=== PATIENT | female | born 1960 | race Caucasian/White ===

== ENCOUNTER 2018-09-16 01:56 | Inpatient (IN) | payer MEDICARE, OTHER ==
[2018-09-16 01:57] VITALS: BMI 47.7
--- NOTE | 2018-09-16 02:11 | C.PDOC ---
History Of Present Illness The patient, whose past medical history includes hypertension, presents to the ED for evalaution of chest pressure/tightness and elevated blood pressure noted earlier tonight. Patient states she has discontinued one of her blood pressure medications because she heard it may cause cancer. She denies fever, chills, nausea, and vomiting. Time Seen by Provider: 09/16/18 02:10 History Per: Patient History/Exam Limitations: no limitations Onset/Duration Of Symptoms: Hrs Current Symptoms Are (Timing): Still Present Severity: Moderate Pain Scale Rating Of: 4 Quality: Tightness, Pressure Associated Symptoms: denies: Nausea Modifying Factors: None Exacerbating Factors: None Alleviating Factors: None Recent travel outside of the [place]: No Additional History Per: Patient Past Medical History Reviewed: Historical Data, Nursing Documentation, Vital Signs - Medical History PMH: Arthritis (knees), Asthma, Gastritis, HTN Denies: Chronic Kidney Disease Surgical History: No Surg Hx Family History: States: Unknown Family Hx - Social History Hx Alcohol Use: No Hx Substance Use: No - Immunization History Hx Influenza Vaccination: Yes Review Of Systems Constitutional: Negative for: Fever, Chills Cardiovascular: Positive for: Other (chest pressure/tightness, elevated blood pressure ). Negative for: Chest Pain, Palpitations Respiratory: Negative for: Cough, Shortness of Breath Gastrointestinal: Negative for: Nausea, Vomiting, Abdominal Pain Musculoskeletal: Negative for: Back Pain Skin: Negative for: Rash, Lesions, Jaundice, Bruising Neurological: Negative for: Weakness, Numbness Psych: Negative for: Anxiety Physical Exam - Physical Exam Appears: Non-toxic, No Acute Distress Skin: Warm, Dry Head: Normacephalic Eye(s): bilateral: Normal Inspection Oral Mucosa: Moist Neck: Supple Chest: Symmetrical, No Deformity, No Tenderness Cardiovascular: Rhythm Regular, No Murmur Respiratory: No Rales, No Rhonchi, No Wheezing, Other (speaking in complete sentences ) Gastrointestinal/Abdominal: Bowel Sounds (good ), Soft, No Tenderness, No Guarding, No Rebound, Other (obese ) Back: No CVA Tenderness Extremity: Normal ROM, Capillary Refill (less than 2 seconds ) Extremity: Bilateral: Atraumatic Neurological/Psych: Oriented x3 Gait: Steady ED Course And Treatment - Laboratory Results Result Diagrams: 09/16/18 02:38 09/16/18 02:38 ECG: Interpreted By Me, Viewed By Me ECG Rhythm: Sinus Rhythm (87), Nonspecific Changes O2 Sat by Pulse Oximetry: 96 (on RA) Pulse Ox Interpretation: Normal - Radiology CXR: Interpreted by Me, Viewed By Me CXR Interpretation: No: Infiltrates, Fracture, Pnemothorax Progress Note: Bloodwork, CXR, EKG ordred and reviewed. Aspirin PO given. Disposition Discussed With Dr.: Sylvia Mackey Comment: accepted the pt on his service and took over the care at 3:27AM Doctor Will See Patient In The: Hospital Counseled Patient/Family Regarding: Studies Performed, Diagnosis - Disposition Disposition: HOME/ ROUTINE Disposition Time: 02:10 Condition: FAIR - POA Present On Arrival: Poor Glycemic Control - Clinical Impression Clinical Impression: Chest pain, Hyperglycemia - Scribe Statement The provider has reviewed the documentation as recorded by the Scribe (Brittni Mackey) Provider Attestation: All medical record entries made by the Scribe were at my direction and person ally dictated by me. I have reviewed the chart and agree that the record accurately reflects my personal performance of the history, physical exam, medical decision making, and the department course for this patient. I have also personally directed, reviewed, and agree with the discharge instructions and disposition. Decision To Admit - Pt Status Changed To: Hospital Disposition Of: Inpatient - Admit Certification Admit to Inpatient:: After my assessment, the patient will require hospitalization for at least two midnights. This is because of the severity of symptoms shown, intensity of services needed, and/or the medical risk in this patient being treated as an outpatient. - InPatient: Physician Admission Certification: I certify that this patient requires 2 or more midnights of care for the following reason:: After my assessment, the patient will require hospitalization for at least two midnights. This is because of the severity of symptoms shown, intensity of services needed, and/or the medical risk in this patient being treated as an outpatient. - . Bed Request Type: Telemetry Admitting Physician: Sylvia Mackey Patient Diagnosis: Chest pain, Hyperglycemia
[2018-09-16] MEDS ORDERED: Aspirin 325 mg EC Tablets PO STA (02:21)
[2018-09-16 02:44] LABS: BASO % 0.6 % (0.0-2.0); EOS # 0.1 K/uL (0.0-0.7); EOS % 0.9 % (0.0-4.0); HEMOGLOBIN 12.1 g/dL (11.0-16.0); LYMPH # 1.8 K/uL (1.0-4.3); LYMPH % 28.5 % (20.0-40.0); MEAN CELL VOLUME 88.7 fL (81.0-99.0); MEAN CORPUSCULAR HEMOGLOBIN 28.7 pg (27.0-31.0); MEAN CORPUSCULAR HGB CONC 32.4 g/dL (33.0-37.0); MEAN PLATELET VOLUME 8.8 fL (7.2-11.7); MONO # 0.4 K/uL (0.0-0.8); MONO % 6.7 % (0.0-10.0); NEUT # 4.1 K/uL (1.8-7.0); NEUT % 63.3 % (50.0-75.0); NRBC % 0.1 % (0.0-2.0); RBC 4.21 Mil/uL (3.80-5.20); WHITE BLOOD COUNT 6.4 K/uL (4.8-10.8)
[2018-09-16 02:53] LABS: ALB/GLOB RATIO 1.1 (1.0-2.1); ALBUMIN 3.9 g/dL (3.5-5.0); ALT/SGPT 14 U/L (9-52); AST/SGOT 17 U/L (14-36); BLOOD UREA NITROGEN 16 mg/dL (7-17); CALCIUM 9.2 mg/dl (8.6-10.4); GFR NON-AFRICAN AMERICAN > 60
--- NOTE | 2018-09-16 07:19 | CP.PCM.PN ---
Subjective - Date & Time of Evaluation Date of Evaluation: 09/16/18 Time of Evaluation: 07:19 - Subjective Subjective: Medicine Progress Note - Dr Venecia Mackey's Service Patient seen and examined at bedside. She was admitted this morning for left sided chest pain. She denies any other associated symptoms. States that chest pain has since resolved. Offers no complaints at this time. Objective - Vital Signs/Intake and Output Vital Signs (last 24 hours): Temp Pulse Resp BP Pulse Ox 98.0 F 87 20 122/53 L 100 09/16/18 06:57 09/16/18 06:57 09/16/18 06:57 09/16/18 06:57 09/16/18 06:57 - Labs Labs: 09/16/18 02:38 09/16/18 02:38 - Constitutional Appears: Non-toxic, No Acute Distress - Head Exam Head Exam: ATRAUMATIC, NORMAL INSPECTION - Eye Exam Eye Exam: EOMI, Normal appearance - ENT Exam ENT Exam: Mucous Membranes Moist - Respiratory Exam Respiratory Exam: Clear to Ausculation Bilateral, NORMAL BREATHING PATTERN. absent: Rales, Rhonchi, Wheezes - Cardiovascular Exam Cardiovascular Exam: REGULAR RHYTHM, +S1, +S2 - GI/Abdominal Exam GI & Abdominal Exam: Soft. absent: Tenderness - Extremities Exam Extremities Exam: absent: Calf Tenderness - Back Exam Back Exam: NORMAL INSPECTION - Neurological Exam Neurological Exam: Alert, Awake, Oriented x3 - Psychiatric Exam Psychiatric exam: Normal Affect, Normal Mood - Skin Skin Exam: Dry, Normal Color, Warm Assessment and Plan - Assessment and Plan (Free Text) Assessment: Chest pain r/o ACS -Patient on telemetry -Troponins negative x 3 -EKG showed normal sinus rhythm with junctional ST depressions with nonspecific ST-T wave changes -Echocardiogram ordered -Started patient on ASA 81mg PO daily, Toprol XL 25mg PO daily, Crestor 20mg PO HS -Patient would like to go home today -Cardiology on consult, Dr Horton, help appreciated -Patient to schedule stress test outpatient Hypertension -Continue home Olmesartan/HCTZ DISPO: We will clear patient for discharge home. She is to follow up with Dr Horton for outpatient stress test. Plan discussed with Dr Venecia Mcneal DO PGY-2
[2018-09-16 08:34] LABS: BASO % 0.3 % (0.0-2.0); EOS # 0.1 K/uL (0.0-0.7); EOS % 1.3 % (0.0-4.0); HEMOGLOBIN 11.7 g/dL (11.0-16.0); LYMPH # 2.1 K/uL (1.0-4.3); LYMPH % 35.1 % (20.0-40.0); MEAN CELL VOLUME 88.9 fL (81.0-99.0); MEAN CORPUSCULAR HGB CONC 32.6 g/dL (33.0-37.0); MEAN PLATELET VOLUME 8.9 fL (7.2-11.7); MONO # 0.4 K/uL (0.0-0.8); MONO % 7.6 % (0.0-10.0); NEUT # 3.3 K/uL (1.8-7.0); NEUT % 55.7 % (50.0-75.0); RBC 4.05 Mil/uL (3.80-5.20); RED CELL DISTRIBUTION WIDTH 16.2 % (11.5-14.5); WHITE BLOOD COUNT 5.9 K/uL (4.8-10.8)
[2018-09-16 08:57] LABS: ALB/GLOB RATIO 1.2 (1.0-2.1); ALBUMIN 3.7 g/dL (3.5-5.0); ALT/SGPT 17 U/L (9-52); AST/SGOT 21 U/L (14-36); BLOOD UREA NITROGEN 19 mg/dL (7-17); CALCIUM 8.8 mg/dl (8.6-10.4); GFR NON-AFRICAN AMERICAN > 60; HDL CHOLESTEROL 43 mg/dL (30-70)
[2018-09-16 09:07] LABS: LDL CHOLESTEROL 100 mg/dL (0-129)
[2018-09-16 09:23] LABS: CK-MB 0.53 ng/mL (0.0-3.38)
--- NOTE | 2018-09-16 10:48 | CP.PCM.CON ---
History of Present Illness - History of Present Illness History of Present Illness: 58-year-old female with past medical history significant for hypertension who stopped taking her blood pressure medications secondary to withdrawal of the medicine from the market with concerns for cancer resented with complaints of ch est discomfort shortness of breath and uncontrolled hypertension. Patient apparently started having substernal chest pressure radiating to the neck accompanied with shortness of breath EKG showed normal sinus rhythm with junctional ST depressions with nonspecific ST-T wave changes prior to cardiac enzymes were negative clinically she is stable right now heart rate of 78 with a blood pressure 138/74 past medical history is significant only for hypertension asthma gastritis no history of smoking no significant family history of premature CAD. Review of Systems - Review of Systems Systems not reviewed;Unavailable: Acuity of Condition - Constitutional Constitutional: As Per HPI - EENT Eyes: As Per HPI Ears: As Per HPI Nose/Mouth/Throat: As Per HPI - Breasts Breasts: As Per HPI - Cardiovascular Cardiovascular: As Per HPI - Respiratory Respiratory: As Per HPI - Gastrointestinal Gastrointestinal: As Per HPI - Genitourinary Genitourinary: As Per HPI - Reproductive: Female Reproductive:Female: As Per HPI - Menstruation Menstruation: As Per HPI - Musculoskeletal Musculoskeletal: As Per HPI - Integumentary Integumentary: As Per HPI - Neurological Neurological: As Per HPI - Psychiatric Psychiatric: As Per HPI - Endocrine Endocrine: As Per HPI - Hematologic/Lymphatic Hematologic: As Per HPI Past Patient History - Infectious Disease Hx of Infectious Diseases: None - Past Medical History & Family History Past Medical History?: Yes - Past Social History Smoking Status: Never Smoked - CARDIAC Hx Hypertension: Yes - PULMONARY Hx Asthma: Yes - NEUROLOGICAL Hx Neurological Disorder: No - HEENT Hx HEENT Problems: No - RENAL Hx Chronic Kidney Disease: No - ENDOCRINE/METABOLIC Hx Endocrine Disorders: No - HEMATOLOGICAL/ONCOLOGICAL Hx Blood Disorders: No - INTEGUMENTARY Hx Dermatological Problems: No - MUSCULOSKELETAL/RHEUMATOLOGICAL Hx Arthritis: Yes (knees) Other/Comment: Bilateral knee replacements in 2009 - GASTROINTESTINAL Hx Gastritis: Yes - GENITOURINARY/GYNECOLOGICAL Hx Genitourinary Disorders: No - PSYCHIATRIC Hx Substance Use: No - SURGICAL HISTORY Hx Surgeries: Yes Hx Orthopedic Surgery: Yes (total marlen knee) Other/Comment: D&C and uterine biopsy with of son - ANESTHESIA Hx Anesthesia: Yes Hx Anesthesia Reactions: No Hx Malignant Hyperthermia: No Has any member of the family had a problem w/ anesthesia?: No Meds Allergies/Adverse Reactions: Allergies Allergy/AdvReac Type Severity Reaction Status Date / Time dog dander Allergy Verified 09/16/18 02:16 FISH Allergy Verified 09/16/18 02:16 iodine Allergy Verified 09/16/18 02:16 padilla Allergy Verified 09/16/18 04:13 padilla flavor Allergy Verified 09/16/18 04:13 Penicillins Allergy Verified 09/16/18 02:16 strawberry Allergy Verified 09/16/18 02:16 wheat Allergy Verified 09/16/18 02:16 Physical Exam - Constitutional Appears: Well - Head Exam Head Exam: ATRAUMATIC, NORMAL INSPECTION, NORMOCEPHALIC - Eye Exam Eye Exam: EOMI, Normal appearance, PERRL Pupil Exam: NORMAL ACCOMODATION, PERRL - ENT Exam ENT Exam: Mucous Membranes Moist, Normal Exam - Neck Exam Neck exam: Positive for: Normal Inspection - Respiratory Exam Respiratory Exam: Clear to Auscultation Bilateral, NORMAL BREATHING PATTERN - Cardiovascular Exam Cardiovascular Exam: REGULAR RHYTHM - GI/Abdominal Exam GI & Abdominal Exam: Normal Bowel Sounds, Soft. absent: Tenderness - Extremities Exam Extremities exam: Positive for: normal inspection - Back Exam Back exam: NORMAL INSPECTION - Neurological Exam Neurological exam: Alert, CN II-XII Intact, Normal Gait, Oriented x3, Reflexes Normal - Psychiatric Exam Psychiatric exam: Normal Affect, Normal Mood - Skin Skin Exam: Dry, Intact, Normal Color, Warm Results - Vital Signs Recent Vital Signs: Last Vital Signs Temp 98.0 F 09/16/18 06:57 Pulse 87 09/16/18 06:57 Resp 20 09/16/18 06:57 BP 122/53 L 09/16/18 06:57 Pulse Ox 100 09/16/18 06:57 - Labs Result Diagrams: 09/16/18 08:30 09/16/18 08:30 Labs: Laboratory Results - last 24 hr 09/16/18 09/16/18 09/16/18 02:38 02:38 08:30 WBC 6.4 D 5.9 RBC 4.21 4.05 Hgb 12.1 11.7 Hct 37.3 36.0 MCV 88.7 D 88.9 MCH 28.7 29.0 MCHC 32.4 L 32.6 L RDW 16.0 H 16.2 H Plt Count 234 234 MPV 8.8 8.9 Neut % (Auto) 63.3 55.7 Lymph % (Auto) 28.5 35.1 Davie % (Auto) 6.7 7.6 Eos % (Auto) 0.9 1.3 Baso % (Auto) 0.6 0.3 Neut # (Auto) 4.1 3.3 Lymph # (Auto) 1.8 2.1 Davie # (Auto) 0.4 0.4 Eos # (Auto) 0.1 0.1 Baso # (Auto) 0.0 0.0 Sodium 137 Potassium 3.8 Chloride 102 Carbon Dioxide 30 Anion Gap 9 L BUN 16 Creatinine 0.9 Est GFR ( Amer) > 60 Est GFR (Non-Af Amer) > 60 Random Glucose 121 H Hemoglobin A1c Calcium 9.2 Phosphorus Magnesium Total Bilirubin 0.6 AST 17 ALT 14 Alkaline Phosphatase 78 Total Creatine Kinase CK-MB (Mass) Troponin I < 0.0120 Total Protein 7.4 Albumin 3.9 Globulin 3.5 Albumin/Globulin Ratio 1.1 Triglycerides Cholesterol LDL Cholesterol Direct HDL Cholesterol 09/16/18 09/16/18 08:30 08:30 WBC RBC Hgb Hct MCV MCH MCHC RDW Plt Count MPV Neut % (Auto) Lymph % (Auto) Davie % (Auto) Eos % (Auto) Baso % (Auto) Neut # (Auto) Lymph # (Auto) Davie # (Auto) Eos # (Auto) Baso # (Auto) Sodium 136 Potassium 4.0 Chloride 99 Carbon Dioxide 32 H Anion Gap 10 BUN 19 H Creatinine 0.7 Est GFR ( Amer) > 60 Est GFR (Non-Af Amer) > 60 Random Glucose 108 H Hemoglobin A1c 6.2 Calcium 8.8 Phosphorus 4.1 Magnesium 1.8 Total Bilirubin 0.3 AST 21 ALT 17 Alkaline Phosphatase 82 Total Creatine Kinase 58 CK-MB (Mass) 0.53 Troponin I < 0.0120 Total Protein 6.9 Albumin 3.7 Globulin 3.2 Albumin/Globulin Ratio 1.2 Triglycerides 193 H Cholesterol 177 LDL Cholesterol Direct 100 HDL Cholesterol 43 Assessment & Plan (1) Chest pain Assessment and Plan: ACS ruled out with TnI x 2 Echo plan for stress test tomorrow keep pt on asa, bb, statins add arb/hctz for BP control Status: Acute (2) HTN (hypertension) Status: Acute
--- NOTE | 2018-09-16 13:13 | RAD ---
Chest x-ray single frontal view History: Chest pain. Comparison: 11/09/2012 Findings: Mild venous congestion. Right hilar prominence. Heart size within normal limits. Patchy increased markings in the right infrahilar region. Cardiomegaly. Degenerative changes in the spine and shoulders. Impression: Mild venous congestion. Right hilar prominence. Heart size within normal limits. Patchy increased markings in the right infrahilar region. Cardiomegaly.
[2018-09-16 15:04] LABS: HDL CHOLESTEROL 51 mg/dL (30-70)
[2018-09-16 15:14] VITALS: BP 123/55; PULSE 81; RESP 19; TEMP 97.6; O2SAT 97
[2018-09-16 15:14] LABS: LDL CHOLESTEROL 108 mg/dL (0-129)
[2018-09-16 15:18] LABS: CK-MB 0.53 ng/mL (0.0-3.38)
[2018-09-16] MEDS ORDERED: Albuterol 0.083% Inhal Sol (2.5 mg/3 mL) UD IH PRN (15:58)
--- NOTE | 2018-09-16 22:38 | CARD ---
APPROVED REPORT Date of service: 09/16/2018 EXAM: Two-dimensional and M-mode echocardiogram with Doppler and color Doppler. Other Information Quality : GoodRhythm : INDICATION Chest Pain RISK FACTORS Hypertension 2D DIMENSIONS IVSd1.1 (0.7-1.1cm)LVDd3.8 (3.9-5.9cm) PWd0.9 (0.7-1.1cm)LA Omoeri82 (18-58mL) LVDs2.3 (2.5-4.0cm)FS (%) 38.6 % LVEF (%)69.7 (>50%)LVEF ([place]aldonado's)65.40 % M-Mode DIMENSIONS Left Atrium (MM)3.96 (2.5-4.0cm)IVSd1.02 (0.7-1.1cm) Aortic Root3.02 (2.2-3.7cm)LVDd4.69 (4.0-5.6cm) Aortic Cusp Exc.2.15 (1.5-2.0cm)PWd0.78 (0.7-1.1cm) FS (%) 35 %LVDs3.06 (2.0-3.8cm) LVEF (%)64 (>50%) Mitral Valve MV E Budljxaj47.0cm/sMV A Yunlzzjd29.1cm/sE/A ratio1.1 TDI Lateral E' Peak V11.32cm/sMedial E' Peak V9.90cm/sE/Lateral E'8.3 E/Medial E'9.5 Tricuspid Valve TR Peak Alqhaljj350kl/sTR Peak Gr.[id number] LEFT VENTRICLE The left ventricle is normal size. There is normal left ventricular wall thickness. Left ventricle systolic function is normal. The Ejection Fraction is 65-70%. There is normal LV segmental wall motion. The left ventricular diastolic function is normal. RIGHT VENTRICLE The right ventricle is normal size. There is normal right ventricular wall thickness. The right ventricular systolic function is normal. ATRIA The left atrium size is normal. The right atrium size is normal. The interatrial septum is intact with no evidence for an atrial septal defect. AORTIC VALVE The aortic valve is normal in structure. No aortic regurgitation is present. There is no aortic valvular stenosis. There is no aortic valvular vegetation. MITRAL VALVE The mitral valve is normal in structure. There is no evidence of mitral valve prolapse. There is no mitral valve stenosis. There is no mitral valve regurgitation noted. TRICUSPID VALVE The tricuspid valve is normal in structure. There is trace to mild tricuspid regurgitation. Right ventricular systolic pressure is estimated at less than 30 mmHg. There is no pulmonary hypertension. PULMONIC VALVE The pulmonic valve is not well visualized. There is no pulmonic valvular regurgitation. GREAT VESSELS The aortic root is normal in size. <Conclusion> Left ventricle systolic function is normal. The Ejection Fraction is 65-70%. No aortic regurgitation is present. There is no mitral valve regurgitation noted. There is trace to mild tricuspid regurgitation. There is no pulmonary hypertension. There is no pulmonic valvular regurgitation.
== END 2018-09-16 17:07 | disposition home or self-care (01) | DRG 313 ==
LOC: C.ER 01:56 → C.9E 03:24 → C.9I 06:56
PROVIDERS: ADMIT Internal Medicine Nephrology; ATTEND Internal Medicine Nephrology
DX: R07.9 Chest pain, unspecified (principal); I10 Essential (primary) hypertension; Z91.14 Patient's other noncompliance with medication regimen; J45.909 Unspecified asthma, uncomplicated; M17.0 Bilateral primary osteoarthritis of knee; Z96.653 Presence of artificial knee joint, bilateral; K29.70 Gastritis, unspecified, without bleeding; R73.9 Hyperglycemia, unspecified